=== PATIENT | male | born 1975 | race African-American/Black ===

== ENCOUNTER 2021-10-22 09:20 | Emergency (ER) | payer MEDICAID ==
[~2021-10-22] VITALS: Ht 165.1 cm; Wt 73.0 kg
[2021-10-22] MEDS ORDERED: LIDOCAINE HCL/EPINEPHRINE 1%-EPI 1:100,000 50 ML VIAL INFIL ONE (10:00)
[2021-10-22] MEDS ORDERED: IBUPROFEN 400MG TABLET PO ONE (10:00)
[2021-10-22] MEDS ORDERED: TETANUS, DIPHTHERIA, PERTUSSIS VAC/PF 0.5ML (>10YR OLD) IM ONE (10:00)
[2021-10-22 10:07] VITALS: BP 128/78
== END 2021-10-22 12:09 | disposition home or self-care (01) ==
LOC: ER 10:05
DX: S61.225A Laceration with foreign body of left ring finger without damage to nail, initial encounter (principal); X58.XXXA Exposure to other specified factors, initial encounter; Y93.89 Activity, other specified; Y92.513 Shop (commercial) as the place of occurrence of the external cause
CPT/HCPCS: 20520; 73130; 99284; Z7610